=== PATIENT | female | born 1960 | race African-American/Black ===

== ENCOUNTER 2017-03-17 01:44 | Emergency (ER) | payer OTHER ==
[~2017-03-17] VITALS: Ht 172.7 cm; Wt 68.0 kg
[2017-03-17 02:11] VITALS: BP 130/63
[2017-03-17] MEDS ORDERED: QVAR7.3 GM INH (02:11)
[2017-03-17] MEDS ORDERED: ZYRTEC10 MG ORAL (02:11)
[2017-03-17] MEDS ORDERED: TAMOXIFEN CITRA20 MG ORAL (02:11)
[2017-03-17] MEDS ORDERED: PROAIR HFA8.5 GM INH (02:11)
[2017-03-17] MEDS ORDERED: PREDNISONE20 MG ORAL (02:42)
--- NOTE | 2017-03-17 02:42 | Emergency Room Report ---
History of Present Illness General Chief Complaint: Allergic Reaction Source: Patient Present Illness HPI Is a 56-year-old female with history of asthma. She presents with chief complaint of allergic reaction. She had the flu shot of around 4 PM. She ate dinner around 8:30 PM. Around 10 he, she developed shortness of breath and a rash and itching. She took a Zyrtec and it slowly got better. Denies any fever or chills. Denies any nausea vomiting. She called the advice nurse line and was told to go to the ER. No other complaint. Allergies: Coded Allergies: No Known Allergies (Unverified , 03/17/17) Patient History Past Medical History: see triage record, old chart reviewed, asthma Past Surgical History: other Pertinent Family History: none Social History: Denies: smoking Last Menstrual Period: n/a Now: No Immunizations: other Reviewed Nursing Documentation: PMH: Agreed, PSxH: Agreed Nursing Documentation-PMH Past Medical History: No History, Except For Hx Asthma: Yes Hx Cancer: Yes - right breast cx Review of Systems Eye: Denies: eye pain, blurred vision ENT: Denies: ear pain, nose congestion, throat swelling Respiratory: Denies: cough, shortness of breath Cardiovascular: Denies: chest pain, palpitations Gastrointestinal: Denies: abdominal pain, diarrhea, nausea, vomiting Musculoskeletal: Denies: back pain, joint pain Skin: Denies: rash Neurological: Denies: headache, numbness Endocrine: Denies: increased thirst, increased urine Hematologic/Lymphatic: Denies: easy bruising All Other Systems: negative except mentioned in HPI Physical Exam Vital Signs Date Time Temp Pulse Resp B/P (MAP) Pulse Ox O2 Delivery O2 Flow Rate FiO2 03/17/17 02:02 97.5 76 20 130/63 98 Room Air vitals normal Sp02 EP Interpretation: reviewed, normal General Appearance: well appearing, no apparent distress, alert Head: normocephalic, atraumatic Eyes: bilateral eye PERRL, bilateral eye EOMI ENT: hearing grossly normal, normal pharynx Neck: full range of motion, supple, no meningismus Respiratory: chest non-tender, lungs clear, normal breath sounds Cardiovascular #1: regular rate, rhythm, no murmur Gastrointestinal: normal bowel sounds, non tender, no mass, no organomegaly, no bruit, non-distended Musculoskeletal: back normal, gait/station normal, normal range of motion Psychiatric: mood/affect normal Skin: warm/dry Medical Decision Making Diagnostic Impression: Primary Impression: Allergic reaction Qualified Codes: T78.40XA - Allergy, unspecified, initial encounter ER Course Patient with allergic reaction. Most likely to some food products rather than the flu shot. No evidence of anaphylaxis. We'll discharge him. Last Vital Signs Date Time Temp Pulse Resp B/P (MAP) Pulse Ox O2 Delivery O2 Flow Rate FiO2 03/17/17 02:11 97.5 74 20 130/63 98 Room Air Status: improved Disposition: HOME, SELF-CARE Condition: Stable Scripts Prednisone* (PREDNISONE*) 20 Mg Tablet 60 MG ORAL DAILY, #12 TAB Prov: LEA JAQUEZ M.D. 03/17/17 Referrals: [facility],REFERR[facility] (PCP) Patient Instructions: Allergies Additional Instructions: Followup with your DrLaurie in 7 days. Return if worse. LEA JAQUEZ M.D. Mar 17, 2017 02:42
[2017-03-17 02:45] VITALS: BP 130/63
== END 2017-03-17 02:45 | disposition home or self-care (01) ==
LOC: EMR 02:08
DX: T78.40XA Allergy, unspecified, initial encounter (principal); X58.XXXA Exposure to other specified factors, initial encounter; R21 Rash and other nonspecific skin eruption; R06.02 Shortness of breath; J45.909 Unspecified asthma, uncomplicated; Z85.3 Personal history of malignant neoplasm of breast
CPT/HCPCS: 99283